=== PATIENT | male | born 1975 | race Caucasian/White ===

== ENCOUNTER 2019-07-04 12:03 | Emergency (ER) | payer OTHER ==
[~2019-07-04] VITALS: Ht 175.3 cm; Wt 108.9 kg
[2019-07-04 12:11] VITALS: BP 124/69
[2019-07-04] MEDS ORDERED: MELO7.5T29 PO (12:29)
[2019-07-04] MEDS ORDERED: MINO100C PO (12:29)
--- NOTE | 2019-07-04 12:29 | PHYS DOC ---
Past History Past Medical History: No Pertinent History Past Surgical History: Other Additional Past Surgical Histo: LEFT LEG FRACTURE, ABSCESS Smoking: Non-smoker Alcohol Use: None Drug Use: None Adult General Chief Complaint Chief Complaint: MEDICATION REFILL HPI HPI Patient is a 43-year-old male presents for a refill of antibiotics. Patient is several years post repair of an open fracture of his left leg. Approximately 2 months ago he developed an infection, was treated for cellulitis and has been on antibiotics since that time. Approximately 2 weeks ago he was seen in [place], [place] and switched to minocycline from the Keflex that he had been taking. Patient reports that the wound is healing. Denies any increased fever. Reports pain is decreasing, waxes and wanes. No fever. Pain is mild at worst. Reports the wound itself is healing with decreasing drainage. Denies any fever.[] Review of Systems Review of Systems Constitutional: Denies fever or chills [] Eyes: Denies change in visual acuity, redness, or eye pain [] HENT: Denies nasal congestion or sore throat [] Respiratory: Denies cough or shortness of breath [] Cardiovascular: No chest pain or palpitations[] GI: Denies abdominal pain, nausea, vomiting, bloody stools or diarrhea [] : Denies dysuria or hematuria [] Musculoskeletal: Denies back pain or joint pain [] Integument: See history of present illness[] Neurologic: Denies headache, focal weakness or sensory changes [] Endocrine: Denies polyuria or polydipsia [] All other systems were reviewed and found to be within normal limits, except as documented in this note. Allergies Allergies Allergies Coded Allergies Type Severity Reaction Last Updated Verified No Known Drug Allergies 07/04/19 No Physical Exam Physical Exam Constitutional: Well developed, well nourished, no acute distress, non-toxic appearance. [] HENT: Normocephalic, atraumatic, bilateral external ears normal, oropharynx moist, no oral exudates, nose normal. [] Eyes: PERRLA, EOMI, conjunctiva normal, no discharge. [] Neck: Normal range of motion, no tenderness, supple, no stridor. [] Cardiovascular:Heart rate regular rhythm, no murmur [] Lungs & Thorax: Bilateral breath sounds clear to auscultation [] Abdomen: Not examined. [] Skin: Warm, dry, left anterior calf has a 1 cm ulcer with healing, granulation tissue in the center of this. There is no significant erythema. No increased tenderness to palpation.. [] Back: No tenderness, no CVA tenderness. [] Extremities: See skin exam above, the other 3 extremities show: No tenderness, no cyanosis, no clubbing, ROM intact, no edema. [] Neurologic: Alert and oriented X 3, normal motor function, normal sensory function, no focal deficits noted. [] Psychologic: Affect normal, judgement normal, mood normal. [] Current Patient Data Vital Signs Vital Signs Date Time Temp Pulse Resp B/P (MAP) Pulse Ox O2 Delivery O2 Flow Rate FiO2 07/04/19 12:11 98.0 78 18 96 EKG EKG [] Radiology/Procedures Radiology/Procedures [] Course & Med Decision Making Course & Med Decision Making Pertinent Labs and Imaging studies reviewed. (See chart for details) ED course: Patient arrived, was placed in bed, and tolerated exam well. Discussed findings and plan with the patient who voiced understanding. All questions were answered. He was discharged in improved condition. Medical decision making: Patient with resolving cellulitis, will continue the antibiotic therapy he is currently taking. 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 Do not see any evidence of a new infection. Nontoxic patient.[] Dragon Disclaimer Dragon Disclaimer This electronic medical record was generated, in whole or in part, using a voice recognition dictation system. Departure Departure: Impression: Primary Impression: Medication refill Disposition: HOME, SELF-CARE Condition: IMPROVED Patient Instructions: Cellulitis Additional Instructions: Follow-up with your regular doctor in 2 days. If you do not have regular doctor list of local clinics will be provided for you. Return to the ER if worsening pain, redness, fever of more than 101�, or any other concerns. Scripts Meloxicam (MELOXICAM) 7.5 Mg Tablet 7.5 MG PO DAILY for PAIN, #20 TAB Prov: HUONG PIERCE DO 07/04/19 Minocycline Hcl (MINOCYCLINE HCL) 100 Mg Capsule 1 CAP PO BID for cellulitis, #60 CAP Prov: HUONG PIERCE DO 07/04/19 HUONG PIERCE DO Jul 04, 2019 12:29
== END 2019-07-04 12:33 | disposition home or self-care (01) ==
LOC: ER 12:03
DX: L03.116 Cellulitis of left lower limb (principal); Z76.0 Encounter for issue of repeat prescription
CPT/HCPCS: 99283